=== PATIENT | female | born 1985 | race Caucasian/White ===

== ENCOUNTER 2022-03-01 14:04 | Outpatient (CLI) | payer BC, SELFPAY ==
[2022-03-01 10:47] LABS: Albumin* 3.9 g/dL (3.3-5.0); Chloride* 108 mmol/L (96-114); Potassium* 3.6 mmol/L (3.6-5.1); Sodium* 138 mmol/L (135-149)
[2022-03-01 10:49] LABS: Cholesterol* 147 mg/dL (90-199); Creatinine* 0.6 mg/dL (0.5-1.5); Estimated Glomerular Filt Rate 119 ml/min
[2022-03-01 10:50] LABS: Alanine Aminotransferase* 38 U/L (4-35); Alkaline Phosphatase* 66 U/L (40-150); Aspartate Amino Transferase* 34 U/L (12-35); Bilirubin Total* 0.5 mg/dL (0.1-1.5); Blood Urea Nitrogen* 18 mg/dL (5-24); Calcium* 8.4 mg/dL (8.4-10.6); Carbon Dioxide* 25 mmol/L (20-32); Glucose* 100 mg/dL (60-115); Total Protein* 6.4 g/dL (6.0-8.3); Triglycerides* 141 mg/dL (40-149)
[2022-03-01 10:51] LABS: HDL Cholesterol* 64 mg/dL (>=50); LDL Cholesterol Calculated 55 mg/dL (<100)
[2022-03-04 09:12] LABS: Iron* 35 ug/dL (37-170)
[2022-03-04 09:21] LABS: Percent Iron Saturation 8 % (20-50); Total Iron Binding Capacity 414 ug/dL (265-497)
[2022-03-04 09:48] LABS: Ferritin* 8.6 ng/mL (6.24-137.0)
[2022-03-04 10:03] LABS: Vitamin B12* 513 pg/mL (243-894)
== END 2022-03-01 14:05 | disposition home or self-care (01) ==
PROVIDERS: PCP Family Medicine; Visit Provider Family Medicine
DX: Z00.00 Encounter for general adult medical examination without abnormal findings (principal); E03.9 Hypothyroidism, unspecified; R73.03 Prediabetes; R53.83 Other fatigue; D64.9 Anemia, unspecified
CPT/HCPCS: 80053; 80061; 82607; 82728; 83516; 83540; 83550; 84443

== ENCOUNTER 2022-05-03 09:00 | Outpatient (RCR) | payer BC, SELFPAY | END 2022-09-30 23:59 | disposition home or self-care (01) | PROVIDERS: PCP Family Medicine; Visit Provider Family Medicine | DX: M54.50 Low back pain, unspecified (principal); Z51.89 Encounter for other specified aftercare | CPT/HCPCS: 97110; 97140; 97161; 97530; T1013 ==

== ENCOUNTER 2022-05-13 21:29 | Emergency (ER) | payer BC, SELFPAY ==
[2022-05-13 21:32] VITALS: BP 116/57; PULSE 82; RESP 16; O2SAT 98; BMI 22.7
--- NOTE | 2022-05-13 21:47 | ED_ITS ---
HPI - Abdominal Pain General Time Seen by Provider: 21:47 Date Seen: 05/13/22 Chief Complaint: Abdominal Pain Stated Complaint: Abdominal pain Time Seen by Provider: 05/13/22 21:38 Source: patient, family, RN notes reviewed and old records reviewed Mode of arrival: ambulatory Limitations: no limitations History of Present Illness HPI narrative: Patient is a very pleasant 37-year-old female with a history of tubal ligation, chronic constipation with MiraLax use for 2 months who comes to the emergency room with abdominal pain. Patient noted the onset of abdominal pain-she shows this to be the epigastrium-last evening. Other family members were sick with vomiting and diarrhea approximately 5 days ago although she never did get sick. She notes however that this pain is different from her usual constipation. She has not had a bowel movement since yesterday and does not note that it was particularly hard. She has had no fever but states she is feeling like she has chills. She has not taken any medication for this. She denies any vomiting but is very nauseated. She denies use dysuria or hematuria. She does have her tubes tied and denies . Movement does not seem to change her pain. Related Data Home Medications Medication Instructions Recorded Confirmed ferrous gluconate 240 mg (27 mg 240 mg PO QDAY 02/23/22 05/13/22 iron) tablet (Ferate) levothyroxine 75 mcg capsule 75 mcg PO QDAY 02/23/22 05/13/22 Calcium 600 mg PO 04/30/22 Previous Rx's Medication Instructions Recorded polyethylene glycol 3350 17 17 g PO .COMPLEX #510 grams 03/05/22 gram/dose oral powder (Miralax) Allergies Allergy/AdvReac Type Severity Reaction Status Date / Time No Known Allergies Allergy Unknown Verified 05/13/22 21:37 Review of Systems Status of ROS Reports: 10 or more systems reviewed and unremarkable except as noted in History and below Const Reports: chills; Denies: fever or fatigue Eyes Denies: change in vision ENMT Denies: throat pain, neck pain or difficulty swallowing Cardio Denies: chest pain, swelling of feet/ankles, lightheadedness or shortness of breath with exertion Resp Denies: shortness of breath, cough or wheezing GI Reports: abdominal pain, nausea and constipation (Chronic); Denies: vomiting, diarrhea or difficulty swallowing Denies: painful urination or urinary frequency Musculo Denies: neck pain Endo Denies: fatigue Allergy/Immuno Denies: wheezing PFSH PFSH Medical History Abdominal pain Dysmenorrhea Hypothyroid Migraine headache Surgical History History of bilateral tubal ligation (08/06/14) History of radioactive iodine thyroid ablation (09/2012) History of tonsillectomy and adenoidectomy (02/16/13) Normal spontaneous vaginal delivery Family History Father Type 2 diabetes mellitus Brother Type 2 diabetes mellitus Mother Type 2 diabetes mellitus Sister Celiac disease Thyroid disease Social History Narrative: 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 Not toxic in appearance. Somewhat guarded in her movement. Neck is supple no lymphadenopathy Heart with regular rate and rhythm and lungs are clear bilaterally. Abdomen shows epigastric and right upper quadrant tenderness. No masses are palpated. Bowel sounds are present. And remainder of abdomen is soft. Lower extremities without edema. Const: Vital Signs, click to edit/add: Vital Signs - 24 hr 05/13/22 21:32 Pulse Rate [Pulse Oximeter] 82 Respiratory Rate 16 Blood Pressure [Ri ght Upper Arm] 116/57 L Pulse Oximetry 98 Oxygen Delivery Me thod Room Air Documenting provider has reviewed patient's vital signs: yes Course Course Hospital Course: At this time differential diagnosis includes but is not limited to biliary colic, gastritis, gastroenteritis/stomach flu, urinary tract infection, constipation. Will place IV give 1 L of normal saline, Toradol 15 mg, Zofran 4 mg and draw blood to test CBC, comp panel, CRP, urinalysis. Will also do flat plate and upright. Reevaluation(s) Reevaluation #1: Patient noted to be feeling better after Toradol 15 mg IV, Zofran 4 mg IV and 1 L of saline. Exam shows consistent pain with palpation right upper quadrant and epigastrium. Patient's then tells me that his life is been experiencing right shoulder pain for approximately 1 week without known injury. I have ordered right upper quadrant ultrasound. Flat plate and upright of the abdomen read as normal although I do see increased stool burden Vital Signs Vital signs: Initial Vital Signs Pulse Rate 82 05/13/22 21:32 Pulse Rhythm 05/13/22 21:32 Respiratory Rate 16 05/13/22 21:32 Blood Pressure 116/57 L 05/13/22 21:32 Blood Pressure Mean 76 05/13/22 21:32 Blood Pressure Position Sitting 05/13/22 21:32 Pulse Oximetry 98 05/13/22 21:32 Oxygen Delivery Method 05/13/22 21:32 Vital Signs Pulse Rate 82 05/13/22 21:32 Respiratory Rate 16 05/13/22 21:32 Blood Pressure 116/57 L 05/13/22 21:32 Pulse Oximetry 98 05/13/22 21:32 Oxygen Delivery Method 05/13/22 21:32 Pulse Rate 82 05/13/22 21:32 Respiratory Rate 16 05/13/22 21:32 Blood Pressure 116/57 L 05/13/22 21:32 Pulse Oximetry 98 05/13/22 21:32 Oxygen Delivery Method 05/13/22 21:32 MDM - Abdominal Pain MDM Narrative Medical decision making narrative: 1. Abdominal pain-suspect biliary colic given exam, 1 week history of right shoulder pain and now epigastric and right upper quadrant pain. CRP elevated but white count is normal at this time. Abdominal ultrasound pending. 2. Chronic constipation-increased stool burden based on my review of the x-ray but radiology reads as normal. 3. Disposition-this patient is signed out to my partner Dr. Wen for review of ultrasound and ultimate disposition. Medical Records Attestation: I reviewed the patient's medical records. Lab Data Attestation: I reviewed the patient's lab results. Labs: Lab Results 05/13/22 05/13/22 05/13/22 Range/Units 22:05 22:05 22:05 WBC 6.91 (4.50-11.00) K/uL RBC 4.32 (4.00-5.20) m/uL Hgb 12.6 (12.0-16.0) gm/dL Hct 38.1 (33.0-51.0) % MCV 88 (80-100) fL MCH 29 (26-34) pg MCHC 33 (32-36) gm/dL RDW Coeff of Steve 14.2 (11.5-15.5) % Plt Count 245 (140-440) K/uL Neut % (Auto) 82.5 H (42.0-72.0) % Lymph % (Auto) 11.6 L (20-44) % [place] % (Auto) 5.4 (0.0-11.0) % Eos % (Auto) 0.1 (0.0-7.0) % Baso % (Auto) 0.3 (0.0-3.0) % Neut # (Auto) 5.70 (1.7-7.0) K/uL Lymph # (Auto) 0.80 L (0.90-2.90) K/uL [place] # (Auto) 0.40 (0.00-0.90) K/UL Eos # (Auto) 0.01 (0.00-0.50) K/uL Baso # (Auto) 0.02 (0.00-0.30) K/uL Sodium 134 L (135-149) mmol/L Potassium 3.4 L (3.6-5.1) mmol/L Chloride 108 (96-114) mmol/L Carbon Dioxide 23 (20-32) mmol/L BUN 11 (5-24) mg/dL Creatinine 0.7 (0.5-1.5) mg/dL Estimated Creat Clear 75.64 Estimated GFR 114 ml/min Glucose 104 (60-115) mg/dL Calcium 8.4 (8.4-10.6) mg/dL Total Bilirubin 0.7 (0.1-1.5) mg/dL AST 27 (12-35) U/L ALT 22 (4-35) U/L Alkaline Phosphatase 52 (40-150) U/L C-Reactive Protein 2.5 H (0.5-1.0) mg/dL Total Protein 6.9 (6.0-8.3) g/dL Albumin 4.0 (3.3-5.0) g/dL Lipase (23-300) U/L Urine Color Yellow (Yellow) Urine Appearance Slightly Cloudy A (Clear) Urine pH 5.5 (5.0-8.5) Ur Specific [place] 1.020 (1.000-1.030) Urine Protein Negative (Negative) Urine Glucose (UA) Negative (Negative) Urine Ketones Negative (Negative) Urine Blood 2+ A (Negative) Urine Nitrite Negative (Negative) Urine Bilirubin Negative (Negative) Urine Urobilinogen 0.2 (0.2-1.0) Ur Leukocyte Esterase Negative (Negative) Urine RBC 0-2 (0-2) Urine WBC 0-2 (0-5) Ur Squamous Epith Cells Moderate A (None-Few) Urine Bacteria Few A (None) 05/13/22 Range/Units 22:05 WBC (4.50-11.00) K/uL RBC (4.00-5.20) m/uL Hgb (12.0-16.0) gm/dL Hct (33.0-51.0) % MCV (80-100) fL MCH (26-34) pg MCHC (32-36) gm/dL RDW Coeff of Steve (11.5-15.5) % Plt Count (140-440) K/uL Neut % (Auto) (42.0-72.0) % Lymph % (Auto) (20-44) % [place] % (Auto) (0.0-11.0) % Eos % (Auto) (0.0-7.0) % Baso % (Auto) (0.0-3.0) % Neut # (Auto) (1.7-7.0) K/uL Lymph # (Auto) (0.90-2.90) K/uL [place] # (Auto) (0.00-0.90) K/UL Eos # (Auto) (0.00-0.50) K/uL Baso # (Auto) (0.00-0.30) K/uL Sodium (135-149) mmol/L Potassium (3.6-5.1) mmol/L Chloride (96-114) mmol/L Carbon Dioxide (20-32) mmol/L BUN (5-24) mg/dL Creatinine (0.5-1.5) mg/dL Estimated Creat Clear Estimated GFR ml/min Glucose (60-115) mg/dL Calcium (8.4-10.6) mg/dL Total Bilirubin (0.1-1.5) mg/dL AST (12-35) U/L ALT (4-35) U/L Alkaline Phosphatase (40-150) U/L C-Reactive Protein (0.5-1.0) mg/dL Total Protein (6.0-8.3) g/dL Albumin (3.3-5.0) g/dL Lipase 137 (23-300) U/L Urine Color (Yellow) Urine Appearance (Clear) Urine pH (5.0-8.5) Ur Specific [place] (1.000-1.030) Urine Protein (Negative) Urine Glucose (UA) (Negative) Urine Ketones (Negative) Urine Blood (Negative) Urine Nitrite (Negative) Urine Bilirubin (Negative) Urine Urobilinogen (0.2-1.0) Ur Leukocyte Esterase (Negative) Urine RBC (0-2) Urine WBC (0-5) Ur Squamous Epith Cells (None-Few) Urine Bacteria (None) Imaging Data Abdominal x-ray: Attestation: I have reviewed the pertinent imaging results. My impression: Increased stool burden Radiologist's impression: No acute findings Discharge Plan Discharge Prescriptions: No Action ferrous gluconate [Ferate] 240 mg (27 mg iron) tablet 240 mg PO QDAY levothyroxine 75 mcg capsule 75 mcg PO QDAY Calcium 600 mg PO polyethylene glycol 3350 [Miralax] 17 gram/dose powder 17 g PO .COMPLEX Qty: 510 1RF Rx Instructions: 1 cap full/ 17 g p.o. with a full glass of water twice a day for 1 week and then once a day until follow-up appointment Follow Up/Referrals: Ashley Hutchins MD [Primary Care Provider] -
--- NOTE | 2022-05-13 21:51 | CRLHL7_ITS ---
For Patients: As a result of the Cures Act, medical imaging exams and procedure reports are released immediately into your electronic medical record. You may view this report before your referring provider. If you have questions, please contact your health care provider. INDICATION: Abdominal pain, history constipation TECHNIQUE: Abdomen/Pelvis radiograph 2 views COMPARISON: None FINDINGS: Bowel: The bowel gas pattern is normal without evidence of bowel obstruction. The epigastrium is obscured by nipple piercings and brassiere wires/clips. Soft tissue: No evidence of pneumoperitoneum present. No suspicious calcifications noted. Bone: Unremarkable for age. IMPRESSION: 1. Unremarkable appearance of the visualized abdomen. Dictated by: Reese Lisa MD @ 05/13/2022 22:31:41 (Electronically Signed)
[2022-05-13] MEDS: 0.9 % SODIUM CHLORIDE 1000 ml 1,000 ML IV (22:07)
[2022-05-13] MEDS: KETOROLAC 15 MG/ML inj IVP (22:08)
[2022-05-13] MEDS: ONDANSETRON 2 MG/ML inj 4 MG IVP (22:08)
[2022-05-13 22:19] LABS: Appearance Urine Slightly Cloudy (Clear); Bilirubin Urine Negative (Negative); Blood Urine 2+ (Negative); Color Urine Yellow (Yellow); Glucose Urine Negative (Negative); Ketones Urine Negative (Negative); Leukocyte Esterase Urine Negative (Negative); Nitrite Urine Negative (Negative); Protein Urine Negative (Negative); Urobilinogen Urine 0.2 (0.2-1.0); pH Urine 5.5 (5.0-8.5)
[2022-05-13 22:32] LABS: Basophils Absolute Auto 0.02 K/uL (0.00-0.30); Basophils Percent Auto 0.3 % (0.0-3.0); Eosinophils Absolute Auto 0.01 K/uL (0.00-0.50); Eosinophils Percent Auto 0.1 % (0.0-7.0); Hematocrit 38.1 % (33.0-51.0); Hemoglobin* 12.6 gm/dL (12.0-16.0); Immature Granulocytes Abs Auto 0.01 K/uL (0.00-0.30); Immature Granulocytes Pct Auto 0.1 %; Lymphocytes Percent Auto 11.6 % (20-44); Mean Corpuscular HGB Conc 33 gm/dL (32-36); Mean Corpuscular Hemoglobin 29 pg (26-34); Mean Corpuscular Volume 88 fL (80-100); Monocytes Percent Auto 5.4 % (0.0-11.0); Neutrophils Percent Auto 82.5 % (42.0-72.0); Platelet Count* 245 K/uL (140-440); RDW Coefficient of Variation % 14.2 % (11.5-15.5); Red Blood Count 4.32 m/uL (4.00-5.20); White Blood Count* 6.91 K/uL (4.50-11.00)
[2022-05-13 22:34] LABS: Chloride* 108 mmol/L (96-114); Sodium* 134 mmol/L (135-149)
[2022-05-13 22:35] LABS: Potassium* 3.4 mmol/L (3.6-5.1)
[2022-05-13 22:37] LABS: Alkaline Phosphatase* 52 U/L (40-150); Aspartate Amino Transferase* 27 U/L (12-35); Bilirubin Total* 0.7 mg/dL (0.1-1.5); Carbon Dioxide* 23 mmol/L (20-32); Creatinine* 0.7 mg/dL (0.5-1.5); Est. Creatinine Clearance* 75.64; Estimated Glomerular Filt Rate 114 ml/min; Total Protein* 6.9 g/dL (6.0-8.3)
[2022-05-13 22:38] LABS: Alanine Aminotransferase* 22 U/L (4-35); Blood Urea Nitrogen* 11 mg/dL (5-24); Calcium* 8.4 mg/dL (8.4-10.6); Glucose* 104 mg/dL (60-115); Lipase* 137 U/L (23-300)
[2022-05-13 22:40] LABS: C Reactive Protein* 2.5 mg/dL (0.5-1.0); RBC Urine 0-2 (0-2); Squamous Epithelial Cell Urine Moderate (None-Few); WBC Urine 0-2 (0-5)
[2022-05-13 22:41] LABS: Bacteria Urine Few
[2022-05-13 22:43] LABS: Slide Review Reflex No
--- NOTE | 2022-05-13 22:52 | CRLHL7_ITS ---
For Patients: As a result of the Century Cures Act, medical imaging exams and procedure reports are released immediately into your electronic medical record. You may view this report before your referring provider. If you have questions, please contact your health care provider. INDICATION: Right upper quadrant abdomen pain. TECHNIQUE: Ultrasound abdomen limited. Sonographic images of the right upper quadrant were obtained using benson-scale and color Doppler images. COMPARISON: None. FINDINGS: Liver: Normal in size and echotexture. No suspicious masses. No intrahepatic biliary dilatation. Gallbladder: No stones or sludge. Normal wall thickness. No pericholecystic fluid. Common bile duct: 5 mm. Pancreas: Unremarkable. Right kidney: Normal in size. Normal echotexture and cortex. No suspicious masses, stones, or hydronephrosis. Vasculature: Proximal abdominal aorta is unremarkable. IMPRESSION: Unremarkable right upper quadrant ultrasound. Dictated by Jaren Gómez MD @ 05/14/2022 12:13:44 AM (Electronically Signed)
[2022-05-13 23:06] VITALS: BP 101/54; PULSE 72; RESP 16; O2SAT 99
[2022-05-13 23:08] VITALS: TEMP 37.3
--- NOTE | 2022-05-13 23:45 | PC.NURSE ---
pt denies discomfort, at bedside. technical training specialist here.
== END 2022-05-14 00:27 | disposition home or self-care (01) ==
PROVIDERS: Emergency Provider Family Medicine; PCP Family Medicine
DX: R10.11 Right upper quadrant pain (principal); K59.00 Constipation, unspecified
CPT/HCPCS: 36415; 74019; 76705; 80053; 81001; 83690; 85025; 86140; 87086; 96374; 96375; 99284; J1885; J2405; J7030

== ENCOUNTER 2022-05-20 06:47 | Day surgery (SDC) | payer BC, SELFPAY ==
--- NOTE | 2022-05-20 07:02 | SUR.PREOP ---
HOME COVID TEST NEGATIVE.
[2022-05-20 07:07] VITALS: BMI 21.0
[2022-05-20 07:24] LABS: Ur HCG Qualitative* Negative (Negative)
[2022-05-20] MEDS: SODIUM CHLORIDE 0.9 % (FLUSH) 10 ML SYRINGE IVF (07:25)
[2022-05-20] MEDS: LACTATED RINGERS 1000 ML 1,000 ML 100 ML IV ×2 (07:25→09:43)
[2022-05-20 07:29] VITALS: BP 99/64; PULSE 54; RESP 16; TEMP 36.6; O2SAT 100
--- NOTE | 2022-05-20 07:32 | SUR.PREOP ---
PATIENT DECLINED NEWS CLIPPING CUTTER, SIGNED PAPERWORK.
[2022-05-20 07:42] LABS: Hemoglobin* 12.2 gm/dL (12.0-16.0)
--- NOTE | 2022-05-20 08:33 | W.ANESCHARGE ---
Anesthesia Charges Start Date/Time Anesthesia Start Date: 05/20/22 Anesthesia Start Time: 08:41 Stop Date/Time Anesthesia Stop Date: 05/20/22 Anesthesia Stop Time: 09:26
[2022-05-20] MEDS: SILVER NITRATE APPLICATOR 1 EACH STICK..EA. TOPICAL (09:11)
[2022-05-20] MEDS: BUPIVACAINE 0.5% 30 ML INJECTION (09:11)
[2022-05-20 09:21] VITALS: BP 98/65; PULSE 47; RESP 14; TEMP 36.6; O2SAT 100
--- NOTE | 2022-05-20 09:26 | W.ANESCHARGE ---
Anesthesia Charges Start Date/Time Anesthesia Start Date: 05/20/22 Anesthesia Start Time: 08:41 Stop Date/Time Anesthesia Stop Date: 05/20/22 Anesthesia Stop Time: 09:26
[2022-05-20 09:30] VITALS: BP 105/56; PULSE 43; RESP 14; O2SAT 100
[2022-05-20 09:45] VITALS: BP 96/56; PULSE 62; RESP 14; O2SAT 100
[2022-05-20 10:00] VITALS: BP 100/64; PULSE 61; RESP 14; O2SAT 100
[2022-05-20 10:15] VITALS: BP 100/63; PULSE 57; RESP 14; O2SAT 100
--- NOTE | 2022-05-20 13:46 | P.GYNPRC_ITS ---
Procedure Note Date Seen: 05/20/22 Procedure Details: Preop diagnosis: Abnormal uterine bleeding, suspected endometrial polyps Postop diagnosis: Abnormal uterine bleeding, suspected endometrial polyps Name of procedure: Hysteroscopy, dilation and curettage, placement of Mirena IUD. Surgeon: Maverick Copeland Farm Machine Operator: None Complications: None EBL: 5mL Drains: None Findings: Speculum exam shows a large multiparous cervix, w/o any gross lesion or abnormal discharge. Intrauterine survey: suspected polypoid lesions seen at the anterior uterine wall, bilateral cornual openings seen. Patient was taken to the OR were MAC anesthesia was administered without difficulty. She was placed in the dorsal lithotomy position with Joshua type stirrups. An exam under anesthesia as described above. Patient was then prepared and draped in the normal sterile fashion. A bivalved speculum was inserted in the posterior aspect of the vagina. 0.5% Marcaine was injected at 2 and 11 o'clock a total of about 8mL utilized. A single-tooth tenaculum was used to grasp the anterior lip of the cervix. The uterus was carefully sounded to 7 cm. The cervical os was sequentially dilated to accommodate the 5 mm TrueClear hysteroscope using Hegar dilators. A 5 mm 30 degree TrueClear hysteroscope was introduced under direct visualization, and the uterus was distended with normal saline. Findings as above. Soft tissue incisor blade from TrueClear hysteroscope system was introduced under direct visualization and endometrial curettings performed with removal of polypoid lesions. Hysteroscope removed under direct visualization. A gentle sharp curettage was then performed as well. Mirena IUD was placed without difficulty, strings were cut and left about 3 -4 cm long. Tenaculum was removed from the cervix and good hemostasis was noted at puncture sites after treatment with silver nitrate stick. Patient tolerated the procedure well. Instrument and sponge counts were correct x2. The patient was awakened from MAC anesthesia and taken to the recovery room in a stable condition. The patient will go home after recovering from anesthesia and meeting all the criteria for discharge. She was given instruction regarding follow-up visit in 2 weeks at [facility] and instructions for pain medication. Fluid deficit: 160mL
== END 2022-05-20 10:30 | disposition home or self-care (01) ==
PROVIDERS: PCP Family Medicine; Visit Provider Obstetrics & Gynecology
PROC: 0UDB8ZZ Extraction of Endometrium, Via Natural or Artificial Opening Endoscopic (ICD-10-PCS; CPT 58558; principal; 2022-05-20 08:15)
DX: N93.8 Other specified abnormal uterine and vaginal bleeding (principal); Z30.430 Encounter for insertion of intrauterine contraceptive device
CPT/HCPCS: 58558; 58300; 00952; 36415; 81025; 85018; 88305; A9270; J1885; J2250; J2405; J2704; J3010; J3490; J7120; J7298

== ENCOUNTER 2022-05-24 15:47 | Outpatient (CLI) | payer BC, SELFPAY | END 2022-05-24 15:48 | disposition home or self-care (01) | LOC: NFLDREF 05-27 06:37 | PROVIDERS: PCP Family Medicine; Referring Provider Family Medicine; Visit Provider Family Medicine | DX: D64.9 Anemia, unspecified (principal); R73.03 Prediabetes; E03.9 Hypothyroidism, unspecified | CPT/HCPCS: 80053; 80061; 84443 ==

== ENCOUNTER 2022-05-27 15:56 | Outpatient (CLI) | payer BC, SELFPAY | END 2022-05-27 15:57 | disposition home or self-care (01) | PROVIDERS: PCP Family Medicine; Visit Provider Family Medicine | DX: R53.83 Other fatigue (principal); D64.9 Anemia, unspecified; N93.9 Abnormal uterine and vaginal bleeding, unspecified; E03.9 Hypothyroidism, unspecified; R73.03 Prediabetes | CPT/HCPCS: 82306; 82607; 82728; 86039; 86140; 86200; 86431; 86812 ==

== ENCOUNTER 2022-08-29 20:18 | Outpatient (CLI) | payer BC, SELFPAY | END 2022-08-29 20:19 | disposition home or self-care (01) | LOC: SLEEP 20:18 | PROVIDERS: PCP Family Medicine; Visit Provider Family Medicine | DX: G47.33 Obstructive sleep apnea (adult) (pediatric) (principal) | CPT/HCPCS: 95810; T1013 ==

== ENCOUNTER 2022-10-22 16:14 | Outpatient (CLI) | payer BC, SELFPAY | END 2022-10-22 16:15 | disposition home or self-care (01) | LOC: NFLDREF 10-24 09:01 | PROVIDERS: PCP Family Medicine; Referring Provider Family Medicine; Visit Provider Family Medicine | DX: E55.9 Vitamin D deficiency, unspecified (principal) | CPT/HCPCS: 82306 ==

== ENCOUNTER 2022-12-24 15:44 | Outpatient (CLI) | payer BC, SELFPAY | END 2022-12-24 15:45 | disposition home or self-care (01) | LOC: NFLDREF 12-27 09:18 | PROVIDERS: PCP Family Medicine; Referring Provider Family Medicine; Visit Provider Family Medicine | DX: D64.9 Anemia, unspecified (principal); E03.9 Hypothyroidism, unspecified; E55.9 Vitamin D deficiency, unspecified; E61.1 Iron deficiency | CPT/HCPCS: 82306; 82728; 84443 ==

== ENCOUNTER 2023-05-16 15:15 | Outpatient (RCR) | payer OTHER, SELFPAY | END 2023-08-19 12:24 | disposition home or self-care (01) | PROVIDERS: PCP Family Medicine; Visit Provider Physician Assistant | DX: M54.50 Low back pain, unspecified (principal); R29.3 Abnormal posture; M62.81 Muscle weakness (generalized); Z51.89 Encounter for other specified aftercare | CPT/HCPCS: 97110; 97161 ==

== ENCOUNTER 2023-09-27 14:58 | Outpatient (CLI) | payer OTHER, SELFPAY ==
--- OUTSIDE RECORDS SUMMARY | 2023-09-30 02:59 | XMS_ITS | Clinical Summary ---
Author Organization [facility] Address [place], [place] [address] Care Team Providers Care Hand Meat Salter Name Role Phone Pcp, No Primary Care Provider Unavailabl e Allergies No known active allergies Medications Medication Sig Dispensed Refills Start Date End Date Status levothyroxine (SYNTHROID) 88 mcg tabletIndications:Hyp othyroidism (acquired) TAKE ONE TABLET (88 MCG) BY MOUTH DAILY BEFORE BREAKFAST. 30 Tablet 08/03/2022 Active Active Problems Problem Noted Date Diagnosed Date Thyroid disease in 11/28/2013 Overview: Goal TSH during : The first trimester 0.1-2.5 Second trimester 0.2-3 Third trimester 0.3-3 Supervision of other normal 10/16/2013 Overview: Wants tubal ligation . Consent signed. Met with vehicle assembly inspector. GBS negative Ivorian speaking patient 12/27/2012 Overview: Acoustical Tile Drill Press Operator Judy Velázquez can call patient with results. [phone] Graves' disease 05/09/2012 Postablative hypothyroidism 03/15/2012 Resolved Problems Problem Noted Date Diagnosed Date Resolved Date Supervision of other normal 09/17/2009 01/26/2010 Immunizations Name Administration Dates Next Due Influenza, IIV4 05/01/2019,01/24/2018,11/28/2013 Tdap 03/04/2014,02/07/2013 Family History Medical History Relation Name Comments Diabetes Father Diabetes Mother Relation Name Status Comments Father Mother Social History Tobacco Use Types Packs/Day Years Used Date Smoking Tobacco: Former Cigarettes 0.1 0.5 1 04/16/2008 - 08/14/2009 Smokeless Tobacco: Never Tobacco Cessation:Counseling Given: Yes Alcohol Use Standard Drinks/Week Comments No 0 (1 standard drink = 0.6 oz pur e alcohol) PHQ-2 Answer Date Recorded PHQ-2 TOTAL SCORE 0 10/07/2020 Social Connections Answer Date Recorded Frequency of Communication with Friends and Fami ly Not on file 03/14/2021 Financial Resource Strain Answer Date R ecorded Difficulty of Paying Living Expenses Not on file 03/14/2021 Difficulty of Paying Living Expenses Not on file 03/14/2021 Sex and Gender Information Value Date Recorded Sex Assigned at Not on file Gender Identity Not on file Sexual Orientation Not on file Obstetrics History Para Term AB IAB SAB Ectopic Multiple Livin g Live Births 3 3 3 3 3 Date Outcome GA Total Labor Labor/2nd/3rd Weight Sex Type Anes PTL Airam A1 A5 Name Clin 09/24 Term 40w 0d 9h 00m/ 3.2 kg (7 lb 1 oz) M Vag Living Barak 11/16 Term 38w 0d 2.89 kg (6 lb 6 oz) M Vag Living Jamil 05/29 Term 39w 4d 3.43 kg (7 lb 9 oz) F Vag Living Last Filed Vital Signs Vital Sign Reading Time Taken Comments Blood Pressure 103/66 01/22/2022 11:08 AM CANNING MACHINE OPERATOR Pulse 66 01/22/2022 11:08 AM CANNING MACHINE OPERATOR Temperature 36.8 ??C (98.2 ??F) 12/25/2021 10:48 AM C DT Respiratory Rate 16 08/09/2019 10:26 AM CDT Oxygen Saturation 100% 01/22/2022 11:08 AM CANNING MACHINE OPERATOR Inhaled Oxygen Concentration - - Weight 43.5 kg (96 lb) 01/22/2022 11:08 AM CANNING MACHINE OPERATOR Height 150.4 cm (4' 11.21) 10/07/2020 9:00 AM C DT Body Mass Index 19.25 10/07/2020 9:00 AM CDT Plan of Treatment Health Maintenance Due Date Last Done Comments Hepatitis C screening for age 18-79 2003 BMI (ht and wt on same day) for age 18+ 10/07/2021 10/07/2020, 10/02/2019, 05/01/2019, Additional history exists Depression screening for age 12+ 10/08/2021 10/08/2020, 10/07/2020, 10/02/2019, Additional history exists COVID-19 vaccine series (2022- season) 2022 07/29/2020, 07/08/2020 Influenza for age 9-49 11/13/2023 0, 01/24/2018, 11/28/2013 Tetanus booster 03/04/2024 03/04/2014, 02/07/2013 Pap test for age 21-65 10/07/2025 1, 10/07/2020, 06/22/2017, Additional history exists HIV for age 15-65 Completed 10/16/2013, 06/18/2009 Tdap Completed 03/04/2014, 02/07/2013 Pneumococcal series for age 6-64 Aged Out No longer eligible based on patient's age to complete this topic Procedures Procedure Name Priority Date/Time Associated Diagnosis Comments MINING AND QUARRYING MACHINERY REPAIRER THIN PREP PAP SCREEN IMAGED Routine 10/07/2020 9:10 AM CDT Screening for malignant neoplasm of cervix ANTI HIV 1/2 Routine 10/16/2013 2:16 PM CDT Supervision of other normal from Last 3 Months or Most Recently Relevant to Health Maintenance Results * MINING AND QUARRYING MACHINERY REPAIRER THIN PREP PAP SCREEN IMAGED (10/07/2020 9:10 AM CDT) Case Report Gynecologic Cytology Report ? Case: [id number] ? Authorizing Provider: ??Catie Bocanegra PA ?Collected: ? 10/07/2020 0910 ? Ordering Location: ? [facility] ?? Received: ?10/07/2020 0939 ? Clinic ? First Screen: ?Karlie Chaudhary ? Specimen: ?MINING AND QUARRYING MACHINERY REPAIRER ThinPrep Vial Screening, Cervical ? 10/16/2020 9:20 AM CDT [facility] INTERPRETATION/ RESULT NEGATIVE FOR INTRAEPITHELIAL LESION OR MALIGNANCY (NIL) (none) 10/16/2020 9:20 AM CDT [facility] EN[facility]AL LABORATORY IMEN ADEQUACY Satisfactory for evaluation Endocervical component present 10/16/2020 9:20 AM CDT [email or web address]-C ENTRAL LABORATORY HPV REQUEST HPV and PAP 10/16/2020 9:20 AM CDT [email or web address] ENTRAL LABORATORY Date of LMP 09/20/20 10/16/2020 9:20 AM CDT [email or web address] ENTRAL LABORATORY Last Pap Date 06/22/17 10/16/2020 9:20 AM CDT [facility] Last Pap Result NIL 9:20 AM CDT [facility] Abnormal Pap or Mehama Bx in last 5 years No 10/16/2020 9:20 AM CDT [email or web address]-C ENTRAL LABORATORY Menstrual Status Irregular Periods 10/16/2020 9:20 AM CDT [facility] Mehama Bx Done Today No 10/16/2020 9:20 AM CDT [facility] Additional Information None given 10/16/2020 9:20 AM CDT [facility] Comment: Cytology is screened at [facility] - [address], [place] [address] and [facility] - [address], [place] [address] and [facility] - [address] [place] [address] Interpreted at [facility] - [address], [place] [address] Automated Review Successful 10/16/2020 9:20 AM CDT [facility] Comment:Specimen processed s uccessfully by automated sausage canner device, ThinPrep Imaging System, [facility] ANCILLARY TESTING MINING AND QUARRYING MACHINERY REPAIRER HPV Ordered, Please see separate report 10/16/2020 9:20 AM CDT [facility] Note The pap test is a screening technique, not a diagnostic procedure. It is used primarily to screen for squamous cancers and precursor lesions. Published studies have shown that it is subject to both false negative and false positive results. The pap test should not be used as the sole means to diagnose or exclude pre-malignant and malignant lesions. 10/16/2020 9:20 AM CDT [facility] Other (Cervical) Non-Blood / Unknown 10/07/2020 9:10 AM CDT 10/07/2020 9:39 AM CDT Catie MENDOZA PATHOLOGY/CYTOLOGY [facility] [address] [place] [address], [place] * ANTI HIV 1/2 (10/16/2013 2:16 PM CDT) HIV-1/HIV-2 ANTIBODY Non-Reacti ve Non-Reacti ve 10/16/2013 8:28 PM CDT [facility] Blood specimen (specimen) BLOOD SPECIMEN / Unknown Venipuncture / Unknown 10/16/2013 2:16 PM CDT 10/16/2013 2:16 PM CDT Narrative [facility] - 10/16/2013 8:28 PM CDT HIV-1 p24 and HIV-1/HIV-2 Ab not detected Rubia Walls NP SEND OUTS [facility] [address] [place] [address], from Last 3 Months or Most Recently Relevant to Health Maintenance Advance Directives * Full Code (Latest Code Status on File) Date Activated Date Inactivated Comments 02/16/2013 10:13 AM 02/16/2013 7:07 PM Care Teams Hand Meat Salter Relationship Specialty Start Date End Date Pcp, No . PCP - General 02/17/18
== END 2023-09-27 14:59 | disposition home or self-care (01) ==
LOC: NFLDREF 09-30 02:57
PROVIDERS: PCP Family Medicine; Referring Provider Family Medicine; Visit Provider Family Medicine
DX: E61.1 Iron deficiency (principal); R53.83 Other fatigue; E03.9 Hypothyroidism, unspecified; D64.9 Anemia, unspecified; E55.9 Vitamin D deficiency, unspecified; Z13.6 Encounter for screening for cardiovascular disorders; Z13.9 Encounter for screening, unspecified
CPT/HCPCS: 80053; 80061; 82306; 82728; 84439; 84443

== ENCOUNTER 2023-10-10 14:51 | Outpatient (CLI) | payer OTHER, SELFPAY ==
--- OUTSIDE RECORDS SUMMARY | 2023-10-10 14:54 | XMS_ITS | Clinical Summary ---
Author Organization [facility] Address [place], [place] [address] Care Team Providers Care Tank Car Loader Name Role Phone Pcp, No Primary Care [...] tubal ligation . Consent signed. Met with scoop filler. 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 Resolved [...] Comments Blood Pressure 103/66 01/22/2022 11:08 AM VP MARKETING Pulse 66 01/22/2022 11:08 AM VP MARKETING Temperature 36.8 ??C (98.2 ??F) 12/25/2021 10:48 AM C DT Respiratory Rate 16 08/09/2019 10:26 AM CDT Oxygen Saturation 100% 01/22/2022 11:08 AM VP MARKETING Inhaled Oxygen Concentration - - Weight 43.5 kg (96 lb) 01/22/2022 11:08 AM VP MARKETING Height 150.4 cm (4' 11.21) 10/07/2020 9:00 [...] Procedure Name Priority Date/Time Associated Diagnosis Comments PRINT JOURNALIST THIN PREP PAP SCREEN IMAGED Routine 10/07/2020 9:10 AM CDT Screening for malignant neoplasm of cervix ANTI HIV 1/2 Routine 10/16/2013 2:16 PM CDT Supervision of other normal from Last 3 Months or Most Recently Relevant to Health Maintenance Results * PRINT JOURNALIST THIN PREP PAP SCREEN IMAGED (10/07/2020 9:10 AM CDT) Case Report Gynecologic Cytology Report ? Case: [id number] ? Authorizing Provider: ??Catie Bocanegra PA ?Collected: ? 10/07/2020 0910 ? Ordering Location: ? [facility] ?? Received: ?10/07/2020 0939 ? Clinic ? First Screen: ?Karlie Chaudhary ? Specimen: ?PRINT JOURNALIST ThinPrep Vial Screening, Cervical ? 10/16/2020 9:20 AM CDT [facility] INTERPRETATION/ RESULT NEGATIVE FOR INTRAEPITHELIAL LESION OR MALIGNANCY (NIL) (none) 10/16/2020 9:20 AM CDT [facility]-C ENTRAL LABORATORY IMEN ADEQUACY Satisfactory for evaluation Endocervical component present 10/16/2020 9:20 AM CDT [facility] [employer] LABOR[facility]-C ENTRAL LABORATORY HPV REQUEST HPV and PAP 10/16/2020 9:20 AM CDT [facility] [employer] [facility]-C ENTRAL LABORATORY Date of LMP 09/20/20 10/16/2020 9:20 AM CDT [facility] [employer] [facility]-C ENTRAL LABORATORY Last Pap Date 06/22/17 10/16/2020 9:20 AM CDT [facility]-C ENTRAL LABORATORY Last Pap Result NIL 9:20 AM CDT [facility] ENTRAL LABORATORY Abnormal Pap or [place] Bx in last 5 years No 10/16/2020 9:20 AM CDT [facility] [employer] [facility]-C ENTRAL LABORATORY Menstrual Status Irregular Periods 10/16/2020 9:20 AM CDT [facility] ENTRMD LABORATORY [place] Bx Done Today No 10/16/2020 9:20 AM CDT [facility] LABOR[facility] Additional Information None given 10/16/2020 9:20 AM CDT [facility]MD LABORATORY Comment: Cytology is screened at [facility] - [address], [place] [address] [address] [facility] - [address], [place] [address] and [facility] - [address] [place] [address] Interpreted at [facility] - [address], [place] [address] Automated Review Successful 10/16/2020 9:20 AM CDT [facility] Comment:Specimen processed s uccessfully by automated wooden boat builder device, ThinPrep Imaging System, [employer] ANCILLARY TESTING PRINT JOURNALIST HPV Ordered, Please see separate report 10/16/2020 9:20 AM CDT [facility] Note The pap test is a [...] and malignant lesions. 10/16/2020 9:20 AM CDT [facility] EN[facility]MD LABORATORY Other (Cervical) Non-Blood / Unknown 10/07/2020 9:10 AM CDT 10/07/2020 9:39 AM CDT Catie MENDOZA PATHOLOGY/CYTOLOGY [facility] [address] [place] [address], [place] * ANTI HIV 1/2 (10/16/2013 2:16 PM CDT) HIV-1/HIV-2 ANTIBODY Non-Reacti ve Non-Reacti ve 10/16/2013 8:28 PM CDT [facility] Blood specimen (specimen) BLOOD SPECIMEN / Unknown Venipuncture / Unknown 10/16/2013 2:16 PM CDT 10/16/2013 2:16 PM CDT Narrative [facility]-CENTRAL LABORATORY - 10/16/2013 8:28 PM CDT HIV-1 p24 and HIV-1/HIV-2 Ab not detected Rubia Walls NP [facility] [address] [place] [address], from Last 3 Months or Most Recently Relevant to Health Maintenance Advance Directives * Full Code (Latest Code Status on File) Date Activated Date Inactivated Comments 02/16/2013 10:13 AM 02/16/2013 7:07 PM Care Teams Tank Car Loader Relationship Specialty Start Date End Date Pcp, No . PCP - General 02/17/18
--- NOTE | 2023-10-10 15:00 | CRLHL7_ITS ---
For Patients: As a result of the Cures Act, medical imaging exams and procedure reports are released immediately into your electronic medical record. You may view this report before your referring provider. If you have questions, please contact your health care provider. Indication: localized swelling, mass and lump Technique: Grayscale and color Doppler ultrasound of the right neck soft tissues performed. Comparison: None Findings: No fluid collection or suspicious mass. Normal-appearing right cervical lymph nodes are present which measure up to 5 millimeters in transverse dimension. No abnormal vascularity. Impression: No suspicious findings. Dictated by Dg Patton MD @ 10/11/2023 8:27:34 AM (Electronically Signed)
== END 2023-10-10 14:52 | disposition home or self-care (01) ==
LOC: US 14:52
PROVIDERS: PCP Family Medicine; Visit Provider Family Medicine
DX: R22.0 Localized swelling, mass and lump, head (principal); R22.1 Localized swelling, mass and lump, neck; Z92.3 Personal history of irradiation
CPT/HCPCS: 76536

== ENCOUNTER 2023-12-29 15:08 | Outpatient (CLI) | payer OTHER, SELFPAY ==
--- OUTSIDE RECORDS SUMMARY | 2024-01-04 15:56 | XMS_ITS | Clinical Summary ---
Author Organization [facility] Address [place], [place] [address] Care Team Providers Care Court Attendant Name Role Phone Pcp, No Primary Care Provider Unavailabl e Allergies No known active allergies Medications Medication Sig Dispensed Refills Start Date End Date Status levothyroxine (SYNTHROID) 88 mcg tabletIndications:Hyp othyroidism (acquired) TAKE ONE TABLET (88 MCG) BY MOUTH DAILY BEFORE BREAKFAST. 30 Tablet 08/03/2022 Active Active Problems Problem Noted Date Diagnosed Date Thyroid disease in 11/28/2013 Overview (11/28/2013): Goal TSH during : The first trimester 0.1-2.5 Second trimester 0.2-3 Third trimester 0.3-3 Supervision of other normal 10/16/2013 Overview (05/29/2014): Wants tubal ligation . Consent signed. Met with applications support engineer. GBS negative Panamanian speaking patient 12/27/2012 Overview (12/28/2012): Direct Care Staffer Judy Velázquez can call patient with results. 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 [...] Comments Blood Pressure 103/66 01/22/2022 11:08 AM ACCOUNT DEVELOPER Pulse 66 01/22/2022 11:08 AM ACCOUNT DEVELOPER Temperature 36.8 ??C (98.2 ??F) 12/25/2021 10:48 AM C DT Respiratory Rate 16 08/09/2019 10:26 AM CDT Oxygen Saturation 100% 01/22/2022 11:08 AM ACCOUNT DEVELOPER Inhaled Oxygen Concentration - - Weight 43.5 kg (96 lb) 01/22/2022 11:08 AM ACCOUNT DEVELOPER Height 150.4 cm (4' 11.21) 10/07/2020 9:00 [...] 10/02/2019, Additional history exists COVID-19 vaccine series ( season) 2023 07/29/2020, 07/08/2020 Influenza for age 9-49 11/13/2023 0, 01/24/2018, 11/28/2013 Tetanus booster 03/04/2024 03/04/2014, 02/07/2013 Pap test for age 21-65 10/07/2025 , 10/07/2020, 06/22/2017, Additional history exists HIV for age 15-65 Completed 10/16/2013, 06/18/2009 Tdap Completed 03/04/2014, 02/07/2013 Pneumococcal series for age 6-64 Aged Out No longer eligible based on patient's age to complete this topic Procedures Procedure Name Priority Date/Time Associated Diagnosis Comments SUPERVISOR [employer] THIN PREP PAP SCREEN IMAGED Routine 10/07/2020 9:10 AM CDT Screening for malignant neoplasm of cervix ANTI HIV 1/2 Routine 10/16/2013 2:16 PM CDT Supervision of other normal from Last 3 Months or Most Recently Relevant to Health Maintenance Results * SUPERVIS[employer] THIN PREP PAP SCREEN IMAGED (10/07/2020 9:10 AM CDT) Case Report Gynecologic Cytology Report ? Case: [id number] ? Authorizing Provider: ??Catie Bocanegra PA ?Collected: ? 10/07/2020 0910 ? Ordering Location: ? [facility] ?? Received: ?10/07/2020 0939 ? Clinic ? First Screen: ?Karlie Chaudhary ? Specimen: ?SUPERVIS[employer] ThinPrep Vial Screening, Cervical ? 10/16/2020 9:20 AM CDT [facility] INTERPRETATION/ RESULT NEGATIVE FOR INTRAEPITHELIAL LESION OR MALIGNANCY (NIL) (none) 10/16/2020 9:20 AM CDT [facility] IMEN ADEQUACY Satisfactory for evaluation Endocervical component present 10/16/2020 9:20 AM CDT [facility]-C ENTRAL LABORATORY HPV REQUEST HPV and PAP 10/16/2020 9:20 AM CDT [facility]-C ENTRAL LABORATORY Date of LMP 09/20/20 10/16/2020 9:20 AM CDT [facility] Last Pap Date 06/22/17 10/16/2020 9:20 AM CDT [facility] Last Pap Result NIL 9:20 AM CDT [facility] Abnormal Pap or [place] Bx in last 5 years No 10/16/2020 9:20 AM CDT [facility] Menstrual Status Irregular Periods 10/16/2020 9:20 AM CDT [facility] [place] Bx Done Today No 10/16/2020 9:20 AM CDT [facility] Additional Information None given 10/16/2020 9:20 AM CDT [facility] Comment: Cytology is screened at [facility] - [address], [place] [address] [facility] - [address], [place] [address] and [facility] - [address] [place] [address] Interpreted at [facility] - [address], [place] [address] Automated Review Successful 10/16/2020 9:20 AM CDT [facility] Comment:Specimen processed s uccessfully by automated television script writer device, ThinPrep Imaging System, [employer] ANCILLARY TESTING SUPERVISOR [employer] HPV Ordered, Please see separate report 10/16/2020 9:20 AM CDT [facility] Note The pap test is [...] and malignant lesions. 10/16/2020 9:20 AM CDT [facility] Other (Cervical) Non-Blood / Unknown 10/07/2020 9:10 AM CDT 10/07/2020 9:39 AM CDT Catie MENDOZA PATHOLOGY/CYTOLOGY [facility] [address] [place] [address], [place] * ANTI HIV 1/2 (10/16/2013 2:16 PM CDT) HIV-1/HIV-2 ANTIBODY Non-Reacti ve Non-Reacti ve 10/16/2013 8:28 PM CDT [facility] Blood specimen (specimen) BLOOD SPECIMEN / Unknown Venipuncture / Unknown 10/16/2013 2:16 PM CDT 10/16/2013 2:16 PM CDT Narrative [facility] LABORAT[facility]-CENTRAL LABORATORY - 10/16/2013 8:28 PM CDT HIV-1 p24 and HIV-1/HIV-2 Ab not detected Rubia Walls GEOPHYSICAL DATA TECHNICIAN SEND OUTS [facility]-CENTRAL LABORATORY [address] [place] [address], from Last 3 Months or Most Recently Relevant to Health Maintenance Advance Directives * Full Code (Latest Code Status on File) Date Activated Date Inactivated Comments 02/16/2013 10:13 AM 02/16/2013 7:[address] Att[address] Relationship Specialty Start Date End Date Pcp, No . PCP - General 02/17/18
== END 2023-12-29 15:09 | disposition home or self-care (01) ==
LOC: NFLDREF 01-04 15:54
PROVIDERS: PCP Family Medicine; Referring Provider Family Medicine; Visit Provider Family Medicine
DX: E89.0 Postprocedural hypothyroidism (principal)
CPT/HCPCS: 84439; 84443

== ENCOUNTER 2024-07-16 15:53 | Outpatient (CLI) | payer OTHER, SELFPAY | END 2024-07-16 15:54 | disposition home or self-care (01) | LOC: NFLDREF 07-19 23:34 | PROVIDERS: PCP Family Medicine; Referring Provider Family Medicine; Visit Provider Family Medicine | DX: D50.0 Iron deficiency anemia secondary to blood loss (chronic) (principal); E03.9 Hypothyroidism, unspecified; E55.9 Vitamin D deficiency, unspecified; R53.82 Chronic fatigue, unspecified; E73.9 Lactose intolerance, unspecified; Z13.6 Encounter for screening for cardiovascular disorders | CPT/HCPCS: 80053; 80061; 82306; 82607; 82728; 84443 ==